=== PATIENT | female | born 2000 | race Caucasian/White ===

== ENCOUNTER 2021-11-08 18:13 | Emergency (ER) | payer MEDICAID ==
[~2021-11-08] VITALS: Ht 162.6 cm; Wt 63.5 kg
--- NOTE | 2021-11-08 18:35 | NUR ---
URINE COLLECTED AND SENT TO LAB
[2021-11-08 19:48] LABS: BILIRUBIN,URINE NEGATIVE (NEGATIVE); COLOR,URINE YELLOW (YELLOW); LEUKOCYTE ESTERASE ,URINE NEGATIVE (NEGATIVE); NITRITE, URINE NEGATIVE (NEGATIVE); PROTEIN,URINE NEGATIVE (NEGATIVE); UGLUCOSE NEGATIVE (NEGATIVE); UROBILINOGEN,URINE 0.2 EU/dL (0.2)
--- NOTE | 2021-11-08 20:40 | NUR ---
Patient discharged to home in stable condition. Written and verbal after care instructions given. Patient verbalizes understanding of instruction. PT ambulatory with a steady gait
[2021-11-08 20:41] VITALS: BP 108/69
== END 2021-11-08 20:41 | disposition home or self-care (01) ==
LOC: ER 18:13
DX: J02.8 Acute pharyngitis due to other specified organisms (principal); A64 Unspecified sexually transmitted disease; Z88.0 Allergy status to penicillin
CPT/HCPCS: 84703-TC; 86403-TC; 87070-TC; 87081-TC; 87491; 87591

== ENCOUNTER 2022-06-29 14:00 | Emergency (ER) | payer MEDICAID ==
[~2022-06-29] VITALS: Ht 162.6 cm; Wt 65.8 kg
[2022-06-29 15:24] VITALS: BP 116/75
[2022-06-29 15:40] LABS: BILIRUBIN,URINE NEGATIVE (NEGATIVE); LEUKOCYTE ESTERASE ,URINE NEGATIVE (NEGATIVE); NITRITE, URINE NEGATIVE (NEGATIVE); PH,URINE 5.5 (5.0-8.0); PROTEIN,URINE NEGATIVE (NEGATIVE); UGLUCOSE NEGATIVE (NEGATIVE); UROBILINOGEN,URINE 0.2 EU/dL (0.2)
[2022-06-29 15:48] LABS: COLOR,URINE YELLOW (YELLOW)
[2022-06-29] MEDS ORDERED: IBUPROFEN 600 MG TABLET PO ONE (16:30)
[2022-06-29] MEDS ORDERED: IBUPROFEN 600 MG TABLET ONE (17:04)
== END 2022-06-29 17:14 | disposition home or self-care (01) ==
LOC: ER 15:03
DX: M25.522 Pain in left elbow (principal); Z88.0 Allergy status to penicillin
CPT/HCPCS: 73080-TC; 87491; 87591

== ENCOUNTER 2022-11-12 16:06 | Emergency (ER) | payer MEDICAID ==
[~2022-11-12] VITALS: Ht 162.6 cm; Wt 68.0 kg
--- NOTE | 2022-11-12 16:55 | NUR ---
RASHIDA FRIEDMAN MOTHER:
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
--- NOTE | 2022-11-12 17:37 | NUR ---
DR. DEGROOT AT BEDSIDE FOR EVAL
--- NOTE | 2022-11-12 18:09 | NUR ---
CALLED [facility] [phone] INCIDENT #[id number] SPOKE WITH [employer]ILITY WORKER [employer] #[id number] WILL SEND A UNIT.
--- NOTE | 2022-11-12 18:17 | NUR ---
PT TAKEN TO CT VIA [facility]. WAIVER SIGNED.
--- NOTE | 2022-11-12 19:18 | NUR ---
[employer] UNIT [id number] AT BEDSIDE
[2022-11-12] MEDS ORDERED: IBUP-1953 PO (19:21)
--- NOTE | 2022-11-12 20:17 | NUR ---
URINE COLLECTED AND SENT TO LAB
--- NOTE | 2022-11-12 20:17 | NUR ---
DRAWING INSTRUCTOR AT PT'S BEDSIDE
--- NOTE | 2022-11-12 21:18 | NUR ---
Patient discharged to home in stable condition. Written and verbal after care instructions given. Patient verbalizes understanding of instruction.
[2022-11-12 22:13] VITALS: BP 128/83
== END 2022-11-12 21:18 | disposition home or self-care (01) ==
LOC: ER 16:11
DX: S02.2XXA Fracture of nasal bones, initial encounter for closed fracture (principal); S09.90XA Unspecified injury of head, initial encounter; Z79.899 Other long term (current) drug therapy; Z88.0 Allergy status to penicillin; W17.89XA Other fall from one level to another, initial encounter; Y93.41 Activity, dancing; Y92.89 Other specified places as the place of occurrence of the external cause; Y99.8 Other external cause status
CPT/HCPCS: 36415; 70450-TC; 70486-TC; G0480